=== PATIENT | male | born 1945 | race Caucasian/White ===

== ENCOUNTER 2020-03-15 12:06 | Emergency (ER) | payer OTHER ==
[2020-03-15 13:52] LABS: BASOPHIL 1.7 % (0-2); EOSINOPHIL 1.4 % (0-7); HCT 26.4 % (42.0-52.0); HGB 8.3 g/dl (13.2-18.0); MCH 30.3 pg (25.0-31.0); MCHC 31.4 g/dL (32.0-36.0); MCV 96.4 fL (78.0-100.0); MONOCYTE 7.5 % (0-12); MPV 8.7 fL (6.0-9.5); NEUTROPHIL 77.3 % (41-80); NRBC 0; PLT 172 K/uL (150-400); RBC 2.74 M/uL (4.70-6.00); RDW 15.4 % (11.5-14.0); WBC 10.6 K/uL (4.0-10.5)
[2020-03-15 14:13] LABS: BUN/CREAT RATIO (CALC) 6.8 RATIO; CREATININE 2.37 mg/dL (0.67-1.17); POTASSIUM 4.2 mmol/L (3.5-5.1)
== END 2020-03-15 16:24 | disposition other institution (70) ==
LOC: FER 12:06
PROVIDERS: Emergency Medicine
DX: S02.2XXA Fracture of nasal bones, initial encounter for closed fracture (principal); S12.301A Unspecified nondisplaced fracture of fourth cervical vertebra, initial encounter for closed fracture; S00.83XA Contusion of other part of head, initial encounter; I12.9 Hypertensive chronic kidney disease with stage 1 through stage 4 chronic kidney disease, or unspecified chronic kidney disease; N18.9 Chronic kidney disease, unspecified; Z99.2 Dependence on renal dialysis; Z86.16 Personal history of COVID-19; W18.11XA Fall from or off toilet without subsequent striking against object, initial encounter; Y92.009 Unspecified place in unspecified non-institutional (private) residence as the place of occurrence of the external cause
CPT/HCPCS: 36415; 70450; 72125; 80048; 85025; 93005